=== PATIENT | female | born 1985 | race Hispanic/Latino ===

== ENCOUNTER 2020-07-25 05:08 | Inpatient (IN) | payer OTHER ==
[~2020-07-25] VITALS: Ht 167.6 cm; Wt 156.9 kg
[2020-07-25] MEDS ORDERED: EPHEDRINE SULFATE 50 MG/ML AMPULE IVP PRN (05:45)
[2020-07-25] MEDS ORDERED: NALOXONE HCL 0.4 MG/1 ML ML IV PRN (05:45)
[2020-07-25] MEDS ORDERED: PROMETHAZINE HCL 25 MG/ML 1ML AMPULE IM PRN (05:45)
[2020-07-25] MEDS ORDERED: OXYTOCIN-LR 20 UNITS/1000 ML 1,000 ML IV SCH ×3 (05:45→14:45)
[2020-07-25] MEDS ORDERED: ROPIVACAINE 0.2% 100ML VIAL 100 ML EP SCH (05:45)
[2020-07-25] MEDS ORDERED: LACTATED RINGERS 1000ML 1,000 ML IV PRN (05:45)
[2020-07-25] MEDS ORDERED: LACTATED RINGERS 500 ML 500 ML IV PRN (05:45)
[2020-07-25] MEDS ORDERED: MEPERIDINE-PF 50 MG/ML SYG IVP PRN (05:45)
[2020-07-25 06:17] LABS: APPEARANCE,URINE Cloudy (CLEAR); BILIRUBIN,URINE Negative (NEGATIVE); COLOR,URINE Yellow (YELLOW); GLUCOSE, URINE (UA) Negative (NEGATIVE); KETONES,URINE Negative (NEGATIVE); LEUKOCYTE ESTERASE ,URINE Trace (NEGATIVE); NITRATE,URINE Negative (NEGATIVE); OCCULT BLOOD,URINE Small (NEGATIVE); PROTEIN,URINE Negative (NEGATIVE)
[2020-07-25 06:45] LABS: BACTERIA,URINE Many /HPF (None Seen)
[2020-07-25 06:46] LABS: SQUAMOUS EPITHELIAL CELL,UR Many /HPF (0-2)
[2020-07-25 06:47] LABS: MUCUS,URINE Few LPF (None Seen)
[2020-07-25] MEDS ORDERED: OXYTOCIN-LR 20 UNITS/1000 ML 1,000 ML IV ONE (06:53)
[2020-07-25 06:59] LABS: HEMATOCRIT 31.7 % (36-48); MEAN CORPUSCULAR HEMOGLOBIN 28.3 pg (27.0-33.0); MEAN CORPUSCULAR HGB CONC 33.8 g/dL (32.0-36.0); MEAN CORPUSCULAR VOLUME 83.9 fL (79-99); PLATELET COUNT (AUTO) 162 K/uL (130-400); RED BLOOD CELL COUNT(AUTO) 3.78 MIL/uL (4.00-5.50); RED CELL DISTRIBUTION WIDTH 14.5 % (11.0-15.5); WHITE BLOOD COUNT (AUTO) 9.3 K/uL (4.8-10.8)
[2020-07-25 07:13] VITALS: BP 120/59
[2020-07-25] MEDS ORDERED: PREN-196 PO (07:17)
[2020-07-25 07:18] LABS: BASOPHILS % (AUTO) 0.2 % (0.0-5.0); EOSINOPHILS % (AUTO) 1.3 % (0.0-8.0); MONOCYTES % (AUTO) 4.8 % (3.0-13.0); NEUTROPHILS % (AUTO) 74.4 % (40.0-77.0)
[2020-07-25 07:42] LABS: INR 0.94 (0.85-1.15); PROTHROMBIN TIME 10.3 SEC (9.6-11.6)
[2020-07-25 07:43] LABS: PARTIAL THROMBOPLASTIN TIME 25.4 SEC (26.3-35.5)
[2020-07-25 07:44] LABS: ALBUMIN 2.4 g/dL (3.5-5.0); BILIRUBIN,TOTAL 0.2 mg/dL (0.2-1.0); CREATININE 0.7 mg/dL (0.5-1.5); POTASSIUM 3.9 mmol/L (3.5-5.1); TOTAL PROTEIN, SERUM 5.8 g/dL (6.0-8.3); URIC ACID 3.1 mg/dL (2.6-7.2)
[2020-07-25] MEDS ORDERED: LIDOCAINE HCL 1% 20 ML VIAL ONE (12:26)
[2020-07-25] MEDS ORDERED: ACETAMINOPHEN WITH CODEINE 1 TAB TAB PO PRN (14:45)
[2020-07-25] MEDS ORDERED: BENZOCAINE/LANOLIN/ALOE VERA 60 ML AEROSOL TP PRN (14:45)
[2020-07-25] MEDS ORDERED: LANOLIN 30GM OINTMENT TP PRN (14:45)
[2020-07-25] MEDS ORDERED: ACETAMINOPHEN 325 MG TAB PO PRN (14:45)
[2020-07-25] MEDS ORDERED: MEASLES/MUMPS/RUBELLA VACCINE, LIVE 0.5 ML/VIAL SQ PRN (14:45)
[2020-07-25] MEDS ORDERED: DIPH,PERTUSS(ACELL),TET VAC/PF 0.5 ML VIAL IM PRN (14:45)
[2020-07-25] MEDS ORDERED: WITCH HAZEL 1 PAD TP PRN (14:45)
[2020-07-25 16:18] VITALS: BP 119/63
[2020-07-25] MEDS: IBUPROFEN 600 MG TABLET PO PRN (20:04)
[2020-07-25] MEDS: DOCUSATE SODIUM 100 MG CAP PO SCH (21:10)
[2020-07-26 00:30] VITALS: BP 124/77
[2020-07-26 03:50] VITALS: BP 141/80
[2020-07-26] MEDS: IBUPROFEN 600 MG TABLET PO PRN (05:44)
[2020-07-26 06:13] LABS: HEPATITIS Bs ANTIGEN SCREEN P Negative (Negative)
[2020-07-26 07:23] VITALS: BP 120/65
[2020-07-26] MEDS: DOCUSATE SODIUM 100 MG CAP PO SCH (09:46)
== END 2020-07-26 15:10 | disposition home or self-care (01) | DRG 807 ==
LOC: LDH 05:08 → WSH 16:15
PROVIDERS: ADMIT Specialist; ATTEND Specialist
PROC: 10E0XZZ Delivery of Products of Conception, External Approach (ICD-10-PCS; principal; 2020-07-25)
PROC: 3E0234Z Introduction of Serum, Toxoid and Vaccine into Muscle, Percutaneous Approach (ICD-10-PCS; 2020-07-25)
PROC: 10907ZC Drainage of Amniotic Fluid, Therapeutic from Products of Conception, Via Natural or Artificial Opening (ICD-10-PCS; 2020-07-25)
PROC: 3E033VJ Introduction of Other Hormone into Peripheral Vein, Percutaneous Approach (ICD-10-PCS; 2020-07-25)
DX: O14.04 Mild to moderate pre-eclampsia, complicating childbirth (principal); Z37.0 Single live birth; Z3A.38 38 weeks gestation of pregnancy; Z23 Encounter for immunization
CPT/HCPCS: 36415; 80053; 81001; 84550; 85025; 85384; 85610; 85730; 86592; 86850; 86900; 86901; 87088; 87340; 90715; A4351; G0378; J2175; J2550; J2590